=== PATIENT | male | born 1965 | race Caucasian/White ===

== ENCOUNTER 2021-01-06 15:11 | Emergency (ER) | payer OTHER ==
[2021-01-06] MEDS ORDERED: BACTROBAN OINT22 GM EXT (17:47)
[2021-01-06] MEDS ORDERED: NAPROXEN500 MG PO (17:47)
== END 2021-01-06 17:54 | disposition home or self-care (01) ==
LOC: ER1 15:11
DX: S62.637A Displaced fracture of distal phalanx of left little finger, initial encounter for closed fracture (principal); I10 Essential (primary) hypertension; F17.200 Nicotine dependence, unspecified, uncomplicated; Z88.5 Allergy status to narcotic agent; Z88.8 Allergy status to other drugs, medicaments and biological substances; W23.0XXA Caught, crushed, jammed, or pinched between moving objects, initial encounter
CPT/HCPCS: 29130; 73140; 99283